=== PATIENT | female | born 1995 | race Caucasian/White ===

== ENCOUNTER 2018-05-02 03:09 | Emergency (ER) | payer MEDICAID | END 2018-05-02 07:18 | disposition left against medical advice (07) | LOC: FTE 03:09 | DX: O99.89 Other specified diseases and conditions complicating pregnancy, childbirth and the puerperium (principal); R68.84 Jaw pain; Z3A.08 8 weeks gestation of pregnancy | CPT/HCPCS: 99282; Z7502 ==